=== PATIENT | female | born 1980 | race Caucasian/White ===

== ENCOUNTER 2019-02-05 02:16 | Emergency (ER) | payer MEDICAID ==
[~2019-02-05] VITALS: Ht 162.6 cm; Wt 71.2 kg
[~2019-02-05 02:16] MED LIST: FERR325E14 PO
[2019-02-05 02:35] VITALS: BP 90/47
--- NOTE | 2019-02-05 02:43 | NUR ---
PT AMBULATED TO BED 1
--- NOTE | 2019-02-05 02:49 | NUR ---
39 Y/O FEMALE BIB SPOUSE C/O MIDDLE BACK PAIN X6 HOURS AGO, WORSENING WITHIN LAST HOUR. RADIATES TO RLQ. 6 WEEKS . PER PT "EVERYTIME I GET I GET KIDNEY STONES." PAIN IS RATED A STABBING 10/10 PAIN. RX: NONE NKA DENIES PHM
[2019-02-05] MEDS ORDERED: KETOROLAC 60 MG/2 ML VIAL IM ONE (02:50)
[2019-02-05] MEDS ORDERED: KETOROLAC 30 MG/ML VIAL IVP ONE (02:55)
[2019-02-05] MEDS ORDERED: ONDANSETRON 4 MG/2 ML VIAL IVP ONE (02:55)
[2019-02-05] MEDS ORDERED: NACL 0.9% 1,000 ML IV ONE (02:55)
[2019-02-05 03:10] LABS: APPEARANCE,URINE SL CLOUDY (CLEAR); BILIRUBIN,URINE NEGATIVE (NEGATIVE); BLOOD, URINE NEGATIVE (NEGATIVE); COLOR,URINE YELLOW (YELLOW); LEUKOCYTE ESTERASE ,URINE 1+ (NEGATIVE); NITRITE, URINE NEGATIVE (NEGATIVE); UGLUCOSE NEGATIVE (NEGATIVE)
[2019-02-05 03:11] LABS: HEMOGLOBIN 8.5 g/dL (12.0-16.0)
[2019-02-05 03:15] LABS: BASOPHILS % (AUTO) 0.2 % (0.0-2.0); EOSINOPHILS % (AUTO) 0.2 % (0.0-4.0); HEMATOCRIT 27.9 % (36-48); LYMPHOCYTES # (AUTO) 1.4 K/uL (2.5-16.5); LYMPHOCYTES % (AUTO) 10.6 % (20.5-51.1); MEAN CORPUSCULAR HEMOGLOBIN 20 pg (27-31); MEAN CORPUSCULAR HGB CONC 30 g/dL (33-37); MEAN CORPUSCULAR VOLUME 64.8 fL (80-94); MONOCYTES # (AUTO) 0.5 K/uL (0.8-1.0); NEUTROPHILS # (AUTO) 11.1 K/uL (1.8-7.7); PLATELET COUNT (AUTO) 353 K/uL (140-450); RED BLOOD CELL COUNT(AUTO) 4.31 MIL/uL (4.20-5.40)
[2019-02-05 03:20] LABS: ANION GAP 15.4 (8-16); CARBON DIOXIDE 22.2 mmol/L (21-32); CREATININE 0.6 mg/dL (0.6-1.3); POTASSIUM 3.6 mmol/L (3.5-5.1)
[2019-02-05 03:30] LABS: RED CELL DISTRIBUTION WIDTH 23.8 % (11.6-13.7)
[2019-02-05 03:37] LABS: RBC,URINE 0-5 /HPF (0-5)
--- NOTE | 2019-02-05 04:30 | NUR ---
PATIENT IS SITTING QUIETLY IN BED AND STATES THAT HER PAIN LEVEL IS A 2/10.
--- NOTE | 2019-02-05 05:00 | NUR ---
PT. IS SLEEPING AT THIS TIME. VSS. SIDE RAILS X1.
[2019-02-05 06:14] VITALS: BP 117/66
--- NOTE | 2019-02-05 06:14 | NUR ---
Patient discharged with v/s stable. Written and verbal after care instructions given and explained. Patient alert, oriented and verbalized understanding of instructions. Ambulatory with steady gait. All questions addressed prior to discharge. ID band removed. Patient advised to follow up with PMD. Rx of MOTRIN 400MG AND MACROBID 100MG given. Patient educated on indication of medication including possible reaction and side effects. Opportunity to ask questions provided and answered.
== END 2019-02-05 06:10 | disposition home or self-care (01) ==
LOC: MED 02:16
DX: O23.41 Unspecified infection of urinary tract in pregnancy, first trimester (principal); Z3A.01 Less than 8 weeks gestation of pregnancy; Z87.442 Personal history of urinary calculi; Z79.899 Other long term (current) drug therapy
CPT/HCPCS: 36415; 76770; 76801; 80048; 81001; 81025; 84702; 85025; 86900; 86901; 87086; 96361; 96374; 96375; 99284; J1885; J2405; J7030; Q0092

== ENCOUNTER 2020-03-07 15:56 | Emergency (ER) | payer MEDICAID ==
[~2020-03-07] VITALS: Ht 161.3 cm; Wt 74.8 kg
[2020-03-07 15:58] VITALS: BP 145/81
--- NOTE | 2020-03-07 16:14 | NUR ---
40 YO FEMALE CO RIGHT SIDED HEADACHE FOR 4D. THROBBING PAIN THAT IS NOT RELIEVED WITH ASPRIN OR IBUPROFEN. PT STATES THAT SHE IS SENSITIVE TO LIGHT AND SOUND. PT DENIES V/D BUT IS NAUSEOUS AT TIMES. NO FEVER OR CHILLS. PT IS A/O X4. NO PMH AND NO RX
[2020-03-07] MEDS: NACL 0.9% 1,000 ML IV ONE (16:37)
[2020-03-07] MEDS: diphenhydrAMINE 50 MG/ML VIAL IVP ONE (16:44)
[2020-03-07] MEDS: MORPHINE SULFATE 4 MG/ML SYR IVP ONE (16:45)
[2020-03-07] MEDS: METOCLOPRAMIDE 10 MG/2 ML INJ VIAL IVP ONE (16:45)
--- NOTE | 2020-03-07 16:46 | NUR ---
PT TAKEN TO CT VIA WC
[2020-03-07 17:57] VITALS: BP 145/81
--- NOTE | 2020-03-07 17:58 | NUR ---
Patient discharged with v/s stable. Written and verbal after care instructions given and explained. Patient alert, oriented and verbalized understanding of instructions. Ambulatory with steady gait. All questions addressed prior to discharge. ID band removed. Patient advised to follow up with PMD. Rx of ZOFRAN AND TRAMADOL given. Patient educated on indication of medication including possible reaction and side effects. Opportunity to ask questions provided and answered.
--- NOTE | 2020-03-09 12:59 | NUR ---
LATE ENTRY--CONFRIMED WITH RN END TIME OF NS IS 1734 03/07/20
== END 2020-03-07 17:58 | disposition home or self-care (01) ==
LOC: MED 15:56
DX: G43.909 Migraine, unspecified, not intractable, without status migrainosus (principal); R42 Dizziness and giddiness; Z79.899 Other long term (current) drug therapy
CPT/HCPCS: 70450; 81002; 81025; 96361; 96374; 96375; 99284; J1200; J2270; J2765; J7030

== ENCOUNTER 2020-04-04 13:28 | Emergency (ER) | payer MEDICAID ==
[~2020-04-04] VITALS: Ht 165.1 cm; Wt 70.3 kg
[2020-04-04 13:31] VITALS: BP 138/72
--- NOTE | 2020-04-04 13:37 | NUR ---
Patient ambulated to bed 1 after providing a urine specimen. RN evaluating patient at bedside.
--- NOTE | 2020-04-04 13:40 | NUR ---
40 YEAR OLD FEMALE COMPLAINS OF HEADACHE AND NAUSEA X 1 MONTH. PT STATES ALSO SHE SEES LIGHTS BRIGHTER THAN NORMAL. PT AOX4, BREATHING EVEN AND UNLABORED, SKIN WARM AND DRY. BED IN LOWEST POSITION, LOCKED, BED RAIL UPX1. PMH - DENIES ALLERGIES - NKA
[2020-04-04] MEDS ORDERED: KETOROLAC 60 MG/2 ML VIAL IM ONE (14:50)
[2020-04-04] MEDS ORDERED: ONDANSETRON 4 MG ODT PO ONE (14:50)
--- NOTE | 2020-04-04 15:00 | NUR ---
PT HAS LEFT FACILITY AT THIS TIME WITHOUT ALERTING PERSONEL.
[2020-04-04 15:22] VITALS: BP 138/72
--- NOTE | 2020-04-04 15:22 | NUR ---
PT HAS NOT RETURNED, ERMD MADE AWARE. PT ELOPED
== END 2020-04-04 15:00 | disposition left against medical advice (07) ==
LOC: MED 13:28
DX: G44.209 Tension-type headache, unspecified, not intractable (principal); F41.8 Other specified anxiety disorders; R03.0 Elevated blood-pressure reading, without diagnosis of hypertension; Z79.899 Other long term (current) drug therapy
CPT/HCPCS: 81025; 96372; 99283; J1885; Q0162; 81002

== ENCOUNTER 2021-07-12 23:53 | Emergency (ER) | payer MEDICAID ==
[~2021-07-12] VITALS: Ht 162.6 cm; Wt 73.0 kg
[2021-07-13 00:35] VITALS: BP 119/83
--- NOTE | 2021-07-13 00:39 | NUR ---
patient to the lobby
[2021-07-13] MEDS ORDERED: KETOROLAC 60 MG/2 ML VIAL IM ONE ×2 (00:50→02:13)
--- NOTE | 2021-07-13 02:13 | NUR ---
medicated patient per ERMD orders. will monitor patient for adverse rx.
[2021-07-13 03:09] VITALS: BP 119/83
--- NOTE | 2021-07-13 03:09 | NUR ---
patient unable to provide urine
--- NOTE | 2021-07-13 03:09 | NUR ---
Patient discharged with v/s stable. Written and verbal after care instructions given and explained. Patient verbalized understanding. Ambulatory with steady gait. ID band removed.All questions addressed prior to discharge. Advised to follow up with PMD.
== END 2021-07-13 03:09 | disposition home or self-care (01) ==
LOC: MED 23:53
DX: M54.6 Pain in thoracic spine (principal)
CPT/HCPCS: 72072; 96372; 99283; J1885

== ENCOUNTER 2023-05-20 22:24 | Emergency (ER) | payer MEDICAID ==
[~2023-05-20] VITALS: Ht 160 cm; Wt 70.8 kg
[2023-05-20 22:41] VITALS: BP 98/67; PULSE 67; RESP 20; TEMP 98; O2SAT 98
[2023-05-20] MEDS ORDERED: KETOROLAC 60 MG/2 ML VIAL IM ONE (22:50)
[2023-05-21] MEDS ORDERED: IBUP-2213 PO (01:30)
[2023-05-21] MEDS ORDERED: ACET-503 PO (01:30)
== END 2023-05-21 01:43 | disposition home or self-care (01) ==
LOC: MED 22:24
DX: M25.511 Pain in right shoulder (principal); Z79.899 Other long term (current) drug therapy
CPT/HCPCS: 73030; 81025; 96372; 99283; J1885

== ENCOUNTER 2024-04-08 19:37 | Emergency (ER) | payer MEDICAID, OTHER ==
[~2024-04-08] VITALS: Ht 162.6 cm; Wt 73.9 kg
[~2024-04-08 19:37] MED LIST changes: +ACET-503 PO; +IBUP-2213 PO
[2024-04-08 19:40] VITALS: BP 145/87; PULSE 92; RESP 20; TEMP 97.2; O2SAT 97
[2024-04-08 20:50] LABS: BASOPHILS % (AUTO) 0.4 % (0.0-2.0); EOSINOPHILS # (AUTO) 0.1 K/uL (0-0.4); EOSINOPHILS % (AUTO) 1.1 % (0.0-4.0); HEMATOCRIT 37.3 % (36-48); HEMOGLOBIN 12.4 g/dL (12.0-16.0); LYMPHOCYTES # (AUTO) 2.6 K/uL (2.5-16.5); LYMPHOCYTES % (AUTO) 33.3 % (20.5-51.1); MEAN CORPUSCULAR HEMOGLOBIN 30 pg (27-31); MEAN CORPUSCULAR HGB CONC 33 g/dL (33-37); MEAN CORPUSCULAR VOLUME 89.2 fL (80-94); MONOCYTES # (AUTO) 0.7 K/uL (0.8-1.0); MONOCYTES % (AUTO) 8.5 % (1.7-9.3); NEUTROPHILS # (AUTO) 4.5 K/uL (1.8-7.7); NEUTROPHILS % (AUTO) 56.7 % (42.2-75.2); PLATELET COUNT (AUTO) 258 K/uL (140-450); RED BLOOD CELL COUNT(AUTO) 4.18 MIL/uL (4.20-5.40); RED CELL DISTRIBUTION WIDTH 13.7 % (11.6-13.7); WHITE BLOOD COUNT (AUTO) 7.9 K/uL (4.8-10.8)
[2024-04-08 21:04] LABS: ANION GAP 12.1 (8-16); CARBON DIOXIDE 26.6 mmol/L (21-32); CREATININE 0.6 mg/dL (0.6-1.3); POTASSIUM 3.7 mmol/L (3.5-5.1)
[2024-04-08] MEDS: MECLIZINE 25 MG TAB PO ONE (21:07)
[2024-04-08] MEDS: ACETAMINOPHEN 325 MG TAB PO ONE (21:10)
[2024-04-08 21:36] LABS: APPEARANCE,URINE CLEAR (CLEAR); BILIRUBIN,URINE NEGATIVE (NEGATIVE); BLOOD, URINE TRACE-I (NEGATIVE); COLOR,URINE YELLOW (YELLOW); LEUKOCYTE ESTERASE ,URINE NEGATIVE (NEGATIVE); NITRITE, URINE NEGATIVE (NEGATIVE); PH,URINE 7.5 (5.0-9.0); PROTEIN,URINE NEGATIVE (NEGATIVE); UGLUCOSE NEGATIVE (NEGATIVE); UROBILINOGEN,URINE 0.2 EU/dL (0.2 - 1)
[2024-04-08] MEDS ORDERED: IBUP-2213 PO (22:11)
[2024-04-08] MEDS ORDERED: MECL-303 PO (22:11)
[2024-04-08 22:50] VITALS: BP 122/80; PULSE 89; RESP 17; TEMP 97.8; O2SAT 98
== END 2024-04-08 22:50 | disposition home or self-care (01) ==
LOC: MED 19:37
DX: G44.209 Tension-type headache, unspecified, not intractable (principal); H81.13 Benign paroxysmal vertigo, bilateral; I10 Essential (primary) hypertension; E11.9 Type 2 diabetes mellitus without complications; R11.0 Nausea; R07.9 Chest pain, unspecified; R06.02 Shortness of breath; Z79.899 Other long term (current) drug therapy
CPT/HCPCS: 36415; 70450; 80048; 81003; 81025; 85025; 93005; 99284; J8597